=== PATIENT | female | born 1990 | race African-American/Black ===

== ENCOUNTER 2019-03-10 15:03 | Emergency (ER) | payer OTHER ==
[2019-03-10] MEDS: DIPHTH/TET/ACEL PERTUSS (ADULT) 0.5 ML VIAL IM* (16:15)
[2019-03-10] MEDS: LIDOCAINE 1% (MDV) 20 ML INJ SC (16:15)
[2019-03-10] MEDS: HYDROCODONE/APAP (10/325) TAB PO (16:15)
[2019-03-10] MEDS: CEFAZOLIN 500 MG INJ IM (16:34)
== END 2019-03-10 17:36 | disposition home or self-care (01) ==
LOC: FTE 15:03
DX: S91.011A Laceration without foreign body, right ankle, initial encounter (principal); S86.001A Unspecified injury of right Achilles tendon, initial encounter; V00.831A Fall from motorized mobility scooter, initial encounter; Z23 Encounter for immunization
CPT/HCPCS: 12002; 73610-RT; 90471; 90715; 96372; 99284-25